=== PATIENT | male | born 1980 | race Caucasian/White ===

== ENCOUNTER 2024-10-21 10:06 | Emergency (ER) | payer OTHER ==
[~2024-10-21] VITALS: Ht 182.9 cm; Wt 79.4 kg
[2024-10-21] MEDS ORDERED: Prednisone20 MG PO (10:58)
== END 2024-10-21 11:08 | disposition home or self-care (01) ==
LOC: ER 10:06
DX: L25.5 Unspecified contact dermatitis due to plants, except food (principal)
CPT/HCPCS: 99282